=== PATIENT | female | born 2000 | race Caucasian/White ===

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

== ENCOUNTER → 2020-03-01 | Outpatient (CLI) | payer OTHER ==
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
== END ==
LOC: RAD 13:44
PROVIDERS: ATTEND Nurse Practitioner Acute Care
DX: S09.92XA Unspecified injury of nose, initial encounter (principal); X58.XXXA Exposure to other specified factors, initial encounter
CPT/HCPCS: 70160